=== PATIENT | female | born 1990 | race Caucasian/White ===

== ENCOUNTER 2017-02-15 08:09 | Inpatient (IN) | payer MEDICAID ==
[~2017-02-15] VITALS: Ht 167.6 cm; Wt 81.6 kg
[2017-02-15 08:41] VITALS: Ht 167.6 cm; Wt 81.6 kg
[2017-02-15 08:42] VITALS: BP 115/67; PULSE 70; RESP 20
[2017-02-15] MEDS ORDERED: FERR325C PO (08:45)
[2017-02-15] MEDS ORDERED: PRENAT PO (08:45)
[2017-02-15 09:10] LABS: URINE BLOOD (Dip) POC 3+ (NEGATIVE)
--- NOTE | 2017-02-15 09:48 | RADRPT ---
PROCEDURE: OB ultrasound for biophysical profile CLINICAL INDICATION: Contractions TECHNIQUE: Multiple sonographic images of the pelvis were obtained. Transabdominal views of the g ravid uterus are available for review. The images were reviewed on a PACS workstation. COMPARISON: None FINDINGS: breathing movement = 2/2 tone = 2/2 motion = 2/2 MARY ALICE = 2/2 MARY ALICE = 11.8 cm Single live intrauterine with cardiac activity of 141 bpm. position is cephal ic. The placenta is fundal. IMPRESSION: 1. Single live intrauterine gestation. 2. Biophysical profile = 8/8. 3. MARY ALICE = 11.8 cm. RPTAT: HH .Ivania Lubin MD, MD Date Time Electronically viewed and signed by .Ivania Lubin MD, on 02/15/2017 09:48 .G/
--- NOTE | 2017-02-15 09:52 | RADRPT ---
PROCEDURE: US OB. CLINICAL INDICATION: Size and dates , contractions TECHNIQUE: Multiple sonographic images of the pelvis and gravid uterus were obtained. The images were reviewed on a PACS workstation. COMPARISON: No prior studies are available for comparison. FINDINGS: There is a single viable intrauterine gestation. Cardiac activity is present with 126 beats per min elem. There is a vertex presentation. The placenta is right fundal. There is no evidence for an abruption or placenta previa. There is a normal amount of amniotic fluid with an MARY ALICE = 11.8 cm. Measurements were made in order to determine age. The results are as follows: BPD =8.7 cm HC =32.1 cm AC =37.4 cm FL =7.8 cm Estimated gestational age of approximately 38 weeks and 1 day based on ultrasound measurements. Clinical age: 40 weeks and 3 days. The estimated date of delivery is 02/28/17, based on ultrasound measurements. The EFW = 3790 g, 58%, based on LMP age. RPTAT: AA IMPRESSION: Single viable intrauterine gestation of approximately 38 weeks and 1 day based on ultrasound measur ements. .Bryan Collins MD, MD Date Time Electronically viewed and signed by .Bryan Collins MD, on 02/15/2017 09:51 .S/
--- NOTE | 2017-02-15 10:59 | TRIAGE ---
OB Triage Datetime Report Generated by CPN: 02/15/2017 10:59 Datetime: 02/15/2017 10:48 Stage of : Labor Datetime: 02/15/2017 10:44 Vaginal Exam Dilatation (cms): 1.5 Effacement (%): 80 Station: -3 Exam By: OGBODU Datetime: 02/15/2017 10:13 Labor Evaluation Frequency: 5-9 Monitor Mode: External Duration (sec)2399: 60-120 Quality: Moderate Pattern: Normal: <= 5 Contractions in 10 Minutes Resting Tone [place]: Relaxed Heart Rate FHR Baseline Rate: 125 Monitor Mode: External US Variability: Moderate 6-25 bpm Accelerations: 15X15 Decelerations: None Category: Category I Datetime: 02/15/2017 09:16 Labor Evaluation Frequency: 5-10 Monitor Mode: External Duration (sec)2399: 60-80 Quality: Moderate Pattern: Normal: <= 5 Contractions in 10 Minutes Resting Tone [place]: Relaxed Heart Rate FHR Baseline Rate: 135 Monitor Mode: External US Variability: Moderate 6-25 bpm Accelerations: 15X15 Decelerations: None Category: Category I Comments: NST REACTIVE FOR GESTATIONAL AGE Datetime: 02/15/2017 08:32 Assessment Type: Triage Maternal Assessment Level of Consciousness: Fully Conscious DTR's/Clonus: DTRs 2+; No Clonus Headache: Denies Blurred Vision: No Respiratory Effort: Unlabored; Regular Rhythm; Equal Expansion Breath Sounds, Left: Clear and Equal Breath Sounds, Right: Clear and Equal Nausea/Vomiting: Denies RUQ Epigastric Pain: Denies Facial Edema: None Fall Risk Assessment History of Falling: (0) No Secondary Diagnosis: (0) No Ambulatory Aid: (0) Bedrest/Nurse Assist IV Therapy: (0) No Gait: (0) Normal/Bedrest/Immobile Mental Status: (0) Oriented to Own Ability Fall Score: 0 Fall Risk Score Definition: No Risk: No action required Datetime: 02/15/2017 08:31 Stage of : OB Triage EGA: 40.3 Maternal Assessment Level of Consciousness: Fully Conscious DTR's/Clonus: DTRs 2+; No Clonus Headache: Denies Blurred Vision: No Respiratory Effort: Unlabored; Regular Rhythm; Equal Expansion Breath Sounds, Left: Clear and Equal Breath Sounds, Right: Clear and Equal Nausea/Vomiting: Denies RUQ Epigastric Pain: Denies Lower Extremities Edema: None Degree: None Upper Extremities Edema: None Degree: None Facial Edema: None Temperature Route: Axillary Fall Risk Assessment History of Falling: (0) No Secondary Diagnosis: (0) No Ambulatory Aid: (0) Bedrest/Nurse Assist IV Therapy: (0) No Gait: (0) Normal/Bedrest/Immobile Mental Status: (0) Oriented to Own Ability Fall Score: 0 Fall Risk Score Definition: No Risk: No action required Pain Assessment Pain Scale: 2 Pain Presence: Intermittent Pain Type: Contraction Pain Location: Abdomen; Back Pain Goal: 2 Pain Relief Measures: Comfort Measures Datetime: 02/15/2017 08:29 Time of Arrival: 02/15/2017 08:06 Arrived By: Ambulatory Arrived From: Home Chief Complaint: UC'S SINCE 0200 Movement: Present Contractions: Regular Time Contractions Began: 02/15/2017 02:00 Contractions: IRREG Rupture of Membranes: Denies Vaginal Bleeding: None Vaginal Discharge: Denies Recent Sexual Intercouse: Denies Abdominal Trauma: Fight Time Provider Notified: 02/15/2017 09:10 Provider Notified: DR. MOMIN Initial Plan: NST, EFM, BPP Datetime: 02/15/2017 08:27 Vaginal Exam Dilatation (cms): 0.0 Effacement (%): 30 Station: -3 Exam By: TEE Vaginal Bleeding: None Cervix, Consistency: Soft Cervix, Position: Midposition Presentation 'A': Cephalic
[2017-02-15] MEDS: LACTATED RINGER'S 1,000 ML IV SCH ×2 (11:28→19:33)
[2017-02-15] MEDS ORDERED: OXYTOCIN 30 UNITS/LR 500 ML IV SCH ×3 (11:30→16:00)
[2017-02-15] MEDS ORDERED: IBUPROFEN 600 MG TAB PO PRN (11:30)
[2017-02-15] MEDS ORDERED: METHYLERGONOVINE 0.2 MG INJ IM PRN (11:30)
[2017-02-15] MEDS ORDERED: OXYTOCIN 30 UNITS/LR 500 ML IV PRN (11:30)
[2017-02-15] MEDS ORDERED: ACETAMINOPHEN/CODEINE #3 TAB PO PRN (11:30)
[2017-02-15] MEDS ORDERED: CARBOPROST 250 MCG INJ IM PRN (11:30)
[2017-02-15] MEDS ORDERED: LIDOCAINE 1% (MPF) 30 ML INJ INJ PRN (11:30)
[2017-02-15] MEDS ORDERED: MISOPROSTOL 200 MCG TAB PR PRN (11:30)
[2017-02-15] MEDS ORDERED: LACTATED RINGER'S 1,000 ML IV PRN (11:30)
[2017-02-15] MEDS ORDERED: BUTORPHANOL 2 MG INJ IV PRN ×2 (11:30)
[2017-02-15 12:50] LABS: ADD SCAN DIFF NO
[2017-02-15 12:52] LABS: BASOPHIL # 0.1 10^3/ul (0.0-0.1); BASOPHILS % 0.6 % (0.0-2.0); EOSINOPHILS # 0.1 10^3/ul (0.0-0.5); EOSINOPHILS % 0.6 % (0.0-7.0); HEMOGLOBIN 11.9 g/dl (12.0-16.0); LYMPHOCYTES # 1.7 10^3/ul (0.8-2.9); LYMPHOCYTES % 18.2 % (15.0-51.0); MEAN CORPUSCULAR HEMOGLOBIN 30.5 pg (29.0-33.0); MEAN CORPUSCULAR HGB CONC 33.1 g/dl (32.0-37.0); MEAN CORPUSCULAR VOLUME 92.3 fl (82.0-101.0); MONOCYTE # 0.7 10^3/ul (0.3-0.9); MONOCYTES % 7.4 % (0.0-11.0); NEUTROPHIL # 6.6 10^3/ul (1.6-7.5); NEUTROPHILS % 72.1 % (39.0-77.0); PLATELET COUNT 229 10^3/UL (140-415); RED CELL DISTRIBUTION WIDTH 13.7 % (11.5-14.5); WHITE BLOOD COUNT 9.1 10^3/ul (4.8-10.8)
[2017-02-15 13:17] LABS: INR 0.99; PROTIME 13.1 Sec (12.2-14.2)
[2017-02-15 13:18] LABS: PARTIAL THROMBOPLASTIN TIME 29.8 Sec (25.0-35.0)
--- NOTE | 2017-02-16 02:42 | HP ---
Date/Time of Note Date/Time of Note DATE: 02/16/17 TIME: 02:37 OB - History Hx of Present Free Text/Dictation 27 Year-old G1 with SIUP at 40 4/7 weeks presents with a chief complaint of ucs. She has been receiving her care with Dr. Aguero. She states good movement. She denies nausea, vomiting, shortness of breath, chest pain, and abdominal pain between contractions, headache, visual changes, vaginal bleeding or LOF. Care: Good Care Ultrasounds: Normal mid trimester US Obstetrical Complications: None Medical Complications: None Past Family/Social History * Past Medical, Surgical, Family and Obstetric Histories reviewed from chart. Blood Type: A+ Rubella: immune RPR/VDRL: Negative GBS Status: Negative HBsAG: Negative OB Admission Exam Vital Signs Vital Signs Vital Signs Date Time Temp Pulse Resp B/P Pulse Ox O2 Delivery O2 Flow Rate FiO2 02/15/17 08:42 99.2 70 20 115/67 Room Air Physical Exam HEENT: WNL Heart: Rhythm Normal Abdomen: WNL Extremities: Normal Reflexes: Normal Cervical Dilatation: 2cm Effacement: 75% Station: -3 Membranes: Intact Heart Rate: 140's Accelerations: Accelerations Present Decelerations: Early Decelerations Varibility: Moderate Last 72 hours Lab Results CBC & BMP 02/15/17 11:28 OB Assessment/Plan Other plan: 27 Year-old G1 with SIUP at 40 4/7 weeks in labor - FHR: No sign of metabolic acidosis- Category I - Continious EFM, toco - CBC, blood type and screen - Analgesia options with R/B/A discussed in detail with patient - Epidural per patient request - Please see the orders - A+/Rubella: Immune/GBS negative Admission, procedures, expectations, risks and possible complications have been discussed in detail with the patient. Risk of vaginal delivery including but not limited to bleeding, infection, cervical laceration, placental retention, injury to fetus, blood transfusion, blood transfusion related infection, risk of anesthesia, adhesion, cervical laceration, episiotomy/laceration, possible delivery with risk of bleeding, infection, injury to other organs ( bowel, bladder, ureter, vessels, nerves), injury to fetus, blood transfusion, blood transfusion related infection, risk of anesthesia, scar and hernia formation, needs for future , removal of uterus or any other indicated surgery discussed with the patient. She expressed understanding and repeats the risks. All of her questions were answered; all appropriate consents will be signed. PHYSICIAN'S VERIFICATION OF INFORMED CONSENT: The patient was counseled regarding the procedure, its indications, risks, potential complications and alternatives and any questions were answered. Consent was obtained. PLANNED PROCEDURE/TREATMENT: Vaginal delivery with possible vacuum/forceps delivery episiotomy, repair of laceration possible delivery PHYSICIAN'S VERIFICATION OF INFORMED CONSENT FOR BLOOD TRANSFUSION: There is a reasonable possibility that blood transfusion will be necessary as a result of the patient's procedure. I have discussed the following with the patient/patient's legal payable representative: An explanation of the benefits and risks of the transfusion of blood or blood products and the possible alternatives. Al questions have been answered to the patient's/patients legal representatives satisfaction. INFORMED CONSENT: The patient has been informed of: - The nature of the proposed care, treatment, services, medic- Potential benefits, risks or side effects, including potential problems related to recuperation. - The likelihood of achieving care treatment and service goals. - Reasonable alternatives to the proposed care, treatment and service. - The relevant risks, benefits and side effects related to alternatives, including the possible results of not receiving care, treatment and services. - When indicated, any limitations on the confidentiality of information learned from or about the patient. - If appropriate, the risks, benefits and alternatives of the drugs to be used for sedation/analgesia including moderate sedation. - If appropriate, patient has been provided information on the risks, benefits and alternatives to the transfusion of blood and/or blood products. JESUS JORDAN Feb 16, 2017 02:42
[2017-02-16] MEDS ORDERED: DEXTROSE 5%-LR 1,000 ML IV SCH (02:47)
[2017-02-16] MEDS ORDERED: LACTATED RINGER'S 1,000 ML IV* SCH (02:47)
--- NOTE | 2017-02-16 02:47 | LDN ---
Date/Time of Note Date/Time of Note DATE: 02/16/17 TIME: 02:43 Delivery Summary 27 y/o G at 40 4/7 weeks delivered a female , : 9/9. Weight: 3515 gram (7 lbs 12 oz) at 01:26 Meconium: none Episiotomy: Yes Laceration repair: with 2/0 vicryl Anesthesia type: Local Estimated blood loss: 350 Sponge & Needle done & correct: Yes All needle counts correct: Yes Any foreign bodies felt in the: No Problems: JESUS JORDAN Feb 16, 2017 02:46
[2017-02-16] MEDS ORDERED: CARBOPROST 250 MCG INJ IM PRN (03:00)
[2017-02-16] MEDS ORDERED: WITCH HAZEL/GLYCERIN PAD PR PRN (03:00)
[2017-02-16] MEDS ORDERED: OXYTOCIN 30 UNITS/LR 500 ML IV PRN (03:00)
[2017-02-16] MEDS ORDERED: BENZOCAINE 20% 56 ML SPRAY TOP PRN (03:00)
[2017-02-16] MEDS ORDERED: LANOLIN 7 GM TUBE TOP PRN (03:00)
[2017-02-16] MEDS ORDERED: ZOLPIDEM 5 MG TAB PO PRN (03:00)
[2017-02-16] MEDS ORDERED: DIPHENHYDRAMINE 50 MG INJ IV PRN (03:00)
[2017-02-16] MEDS ORDERED: METHYLERGONOVINE 0.2 MG INJ IM PRN (03:00)
[2017-02-16] MEDS ORDERED: OXYCODONE/ASPIRIN (4.88/325) TAB PO PRN (03:00)
[2017-02-16] MEDS ORDERED: ACETAMINOPHEN 325 MG TAB PO PRN (03:00)
[2017-02-16] MEDS ORDERED: DIBUCAINE 1% 30 GM OINT PR PRN (03:00)
[2017-02-16] MEDS ORDERED: ONDANSETRON 4 MG INJ IV PRN (03:00)
[2017-02-16] MEDS ORDERED: SENNA/DOCUSATE NA (8.6MG/50MG) TAB PO PRN (03:00)
[2017-02-16] MEDS ORDERED: MISOPROSTOL 200 MCG TAB PR PRN (03:00)
[2017-02-16 03:25] VITALS: BP 118/63; PULSE 95; RESP 19
[2017-02-16 04:15] VITALS: BP 110/68; PULSE 86; RESP 18
[2017-02-16] MEDS: IBUPROFEN 600 MG TAB PO SCH ×3 (05:14→17:24)
[2017-02-16 08:25] VITALS: BP 96/50; PULSE 94; RESP 18
[2017-02-16 12:00] VITALS: BP 98/48; PULSE 90; RESP 16
[2017-02-16 16:00] VITALS: BP 97/53; PULSE 78; RESP 17
[2017-02-16 20:00] VITALS: BP 98/67; PULSE 80; RESP 18
[2017-02-17] MEDS: IBUPROFEN 600 MG TAB PO SCH ×4 (00:09→17:54)
[2017-02-17 04:00] VITALS: BP 99/53; PULSE 68; RESP 17
[2017-02-17 07:56] LABS: ADD SCAN DIFF NO
[2017-02-17 08:00] VITALS: BP 110/53; PULSE 65; RESP 18
[2017-02-17 08:01] LABS: BASOPHIL # 0.1 10^3/ul (0.0-0.1); BASOPHILS % 0.5 % (0.0-2.0); EOSINOPHILS # 0.2 10^3/ul (0.0-0.5); EOSINOPHILS % 1.6 % (0.0-7.0); HEMOGLOBIN 8.4 g/dl (12.0-16.0); LYMPHOCYTES # 2.3 10^3/ul (0.8-2.9); LYMPHOCYTES % 21.4 % (15.0-51.0); MEAN CORPUSCULAR HEMOGLOBIN 30.9 pg (29.0-33.0); MEAN CORPUSCULAR HGB CONC 33.6 g/dl (32.0-37.0); MEAN CORPUSCULAR VOLUME 91.9 fl (82.0-101.0); MEAN PLATELET VOLUME 11.5 fl (7.4-10.4); MONOCYTES % 9.1 % (0.0-11.0); NEUTROPHILS % 66.5 % (39.0-77.0); PLATELET COUNT 188 10^3/UL (140-415); RED BLOOD COUNT 2.72 10^6/ul (4.20-5.40); RED CELL DISTRIBUTION WIDTH 13.9 % (11.5-14.5); WHITE BLOOD COUNT 10.6 10^3/ul (4.8-10.8)
--- NOTE | 2017-02-17 10:26 | PN ---
Date/Time of Note Date/Time of Note DATE: 02/17/17 TIME: 10:25 OB Subjective Subjective Subjective Laboratory Tests Test 02/17/17 06:45 White Blood Count 10.610^3/ul Red Blood Count 2.7210^6/ul Hemoglobin 8.4g/dl Hematocrit 25.0% Mean Corpuscular Volume 91.9fl Mean Corpuscular Hemoglobin 30.9pg Mean Corpuscular Hemoglobin Concent 33.6g/dl Red Cell Distribution Width 13.9% Platelet Count 15870^3/UL Mean Platelet Volume 11.5fl Neutrophils % 66.5% Lymphocytes % 21.4% Monocytes % 9.1% Eosinophils % 1.6% Basophils % 0.5% Nucleated Red Blood Cells % 0.0/100WBC Neutrophils # 7.010^3/ul Lymphocytes # 2.310^3/ul Monocytes # 1.010^3/ul Eosinophils # 0.210^3/ul Basophils # 0.110^3/ul Nucleated Red Blood Cells # 0.010^3/ul Current Medications Medications (Trade) Dose Ordered Sig/[place]ib[place] Route PRN Reason Start Time Stop Time Status Last Admin Dose Admin Lactated Ringer's (Lr) 1,000 ml @ 125 mls/hr Q8H IV 02/15/17 11:10 02/16/17 03:00 DC 02/15/17 19:33 Butorphanol Tartrate (Stadol) 1 mg Q2H PRN IV PAIN 02/15/17 11:30 02/16/17 03:00 DC Butorphanol Tartrate (Stadol) 2 mg Q2H PRN IV PAIN 02/15/17 11:30 02/16/17 03:00 DC 02/15/17 21:18 Lidocaine 30 ml 30 ml ONCE PRN INJ EPISIOTOMY/TEARING 02/15/17 11:30 02/16/17 03:00 DC Oxytocin/Lactated Ringer's 500 ml @ 125 mls/hr ONCE -MAY REPEAT X1 IV 02/15/17 11:30 02/16/17 06:25 Oxytocin/Lactated Ringer's 500 ml @ 125 mls/hr ONCE IV 02/15/17 11:30 02/16/17 03:00 DC 02/16/17 01:52 Ibuprofen (Motrin) 600 mg ONCE PRN PO Mild Pain (Pain Score 1-3) 02/15/17 11:30 02/16/17 03:00 DC Acetaminophen/ Codeine Phosphate 2 tab 2 tab ONCE PRN PO Moderate to Severe Pain (4-10) 02/15/17 11:30 Lactated Ringer's 1,000 ml @ 2,000 mls/hr Q30M PRN IV PRE-EPIDURAL BOLUS 02/15/17 11:30 02/16/17 03:00 DC Oxytocin/Lactated Ringer's 500 ml @ 0 mls/hr ONCE PRN IV For Hemorrhage Management 02/15/17 11:30 Methylergonovine Maleate (Methergine) 0.2 mg ONCE PRN IM VAGINAL BLEEDING 02/15/17 11:30 02/16/17 03:00 DC Carboprost Tromethamine (Hemabate) 250 mcg ONCE PRN IM VAGINAL BLEEDING 02/15/17 11:30 02/16/17 03:00 DC Misoprostol 1000 mcg 1,000 mcg ONCE PRN CA VAGINAL BLEEDING 02/15/17 11:30 02/16/17 03:00 DC 02/16/17 01:35 Oxytocin/Lactated Ringer's 500 ml @ 0 mls/hr TITRATE IV 02/15/17 16:00 02/16/17 03:00 DC 02/15/17 16:10 Lactated Ringer's (Lr) 1,000 ml @ 125 mls/hr Q8H IV* 02/16/17 02:47 02/16/17 18:48 DC Ibuprofen (Motrin) 600 mg Q6 PO 02/16/17 06:00 02/17/17 05:50 Acetaminophen (Tylenol Tab) 650 mg Q4H PRN PO PAIN LEVEL 1-5 02/16/17 03:00 Oxycodone/Aspirin (Percodan) 1 tab Q3H PRN PO PAIN LEVEL 1-5 02/16/17 03:00 Ondansetron HCl (Zofran Inj) 4 mg Q6H PRN IV NAUSEA AND/OR VOMITING 02/16/17 03:00 Diphenhydramine HCl (Benadryl) 25 mg Q6H PRN IV PRURITUS 02/16/17 03:00 Zolpidem Tartrate (Ambien) 5 mg QHS PRN PO INSOMNIA 02/16/17 03:00 Senna/Docusate Sodium (Senokot-S) 1 tab BID PRN PO CONSTIPATION 02/16/17 03:00 Witch [place]/ Glycerin (Tucks Pads) 1 pad BEDSIDE MEDICATION PRN CA HEMORRHOID/EPISIOTMY PAIN 02/16/17 03:00 02/16/17 05:15 Benzocaine (Dermoplast [place]) 1 spray BEDSIDE MEDICATION PRN TOP HEMORRHOID/EPISIOTMY PAIN 02/16/17 03:00 02/16/17 05:14 Dibucaine (Nupercainal) 1 applic BEDSIDE MEDICATION PRN CA HEMORRHOID/EPISIOTMY PAIN 02/16/17 03:00 Lanolin (Slt-U-Ziegut) 1 applic BEDSIDE MEDICATION PRN TOP BEDSIDE FOR LICHA TO NIPPLES 02/16/17 03:00 02/16/17 05:14 Measles/Mumps/ Rubella Vaccine Live (Mmr Ii Vaccine) 0.5 ml ONCE ONCE SC* 02/18/17 09:00 02/18/17 09:01 Diphtheria/ Tetanus/Acell Pertussis 0.5 ml 0.5 ml ONCE ONCE IM* 02/18/17 09:00 02/18/17 09:01 Oxytocin/Lactated Ringer's 500 ml @ 0 mls/hr ONCE PRN IV For Hemorrhage Management 02/16/17 03:00 Methylergonovine Maleate (Methergine) 0.2 mg ONCE PRN IM VAGINAL BLEEDING 02/16/17 03:00 Carboprost Tromethamine (Hemabate) 250 mcg ONCE PRN IM VAGINAL BLEEDING 02/16/17 03:00 Misoprostol 1000 mcg 1,000 mcg ONCE PRN CA VAGINAL BLEEDING 02/16/17 03:00 Dextrose/Lactated Ringer's (D5-Lr) 1,000 ml @ 125 mls/hr Q8H IV 02/16/17 02:47 02/16/17 03:00 DC Post normal vaginal delivery day 1 Afebrile vital signs stable abdomen soft uterus firm lochia normal extremity ambulation encouraged IVORY MOMIN MD Feb 17, 2017 10:26
[2017-02-17 16:00] VITALS: BP 106/57; PULSE 76; RESP 18
[2017-02-17 20:00] VITALS: BP 119/55; PULSE 78; RESP 18
[2017-02-18] MEDS: IBUPROFEN 600 MG TAB PO SCH ×3 (00:06→12:42)
[2017-02-18 04:00] VITALS: BP 109/58; PULSE 67; RESP 17
[2017-02-18 08:00] VITALS: BP 110/56; PULSE 66; RESP 18
[2017-02-18] MEDS ORDERED: MEASLES,MUMPS,RUBELLA VACCINE INJ SC* ONE (09:00)
[2017-02-18] MEDS ORDERED: DIPHTH/TET/ACEL PERTUSS (ADULT) 0.5 ML VIAL IM* ONE (09:00)
--- NOTE | 2017-02-18 17:18 | DS ---
Date/Time of Note Date/Time of Note DATE: 02/18/17 TIME: 17:17 Obstetrical Discharge Record Final Diagnosis Final Diagnosis: Term delivered Other Final Diagnosis day #2 status post Patient discharged home today Patient instructed to follow-up with her [facility] in 2 and 6 weeks Vaginal Delivery Obstetrical Delivery: Spontaneous Condition on Discharge Physical Assessment Last Vitals: Patient afebrile and stable Voiding: Yes Bowel Movement: Yes Breast: Soft, non-tender Fundus: Firm Calf Tenderness: No Patient Condition: Good BERONICA TRIPP MD Feb 18, 2017 17:18
== END 2017-02-18 17:50 | disposition home or self-care (01) | DRG 775 ==
LOC: OBT 08:09 → L-D 08:10 → OBT 10:57 → L-D 10:58 → PP1 02-16 03:15
PROVIDERS: ADMIT Obstetrics & Gynecology; ATTEND Obstetrics & Gynecology
PROC: 10E0XZZ Delivery of Products of Conception, External Approach (ICD-10-PCS; principal; 2017-02-16)
DX: O80 Encounter for full-term uncomplicated delivery (principal); Z37.0 Single live birth; Z3A.40 40 weeks gestation of pregnancy
CPT/HCPCS: 76815; 76818; 81003; 85025; 85610; 85730; 86592; 86900; 86901; 90715; G0463; J0595; J2590; J7120; J7121